=== PATIENT | male | born 1975 | race African-American/Black ===

== ENCOUNTER 2019-04-30 15:40 | Emergency (ER) | payer SELFPAY ==
[2019-04-30] MEDS ORDERED: HYDROCODONE/APAP 5/325 MG TAB ONE (16:38)
[2019-04-30] MEDS ORDERED: DIAZEPAM 5 MG TABLET ONE (16:38)
--- NOTE | 2019-04-30 16:45 | EDPHYS ---
Physician Documentation [facility] Name: Eriberto Alford Age: 43 yrs Sex: Male : 1975 Arrival Date: 04/30/2019 Time: 15:44 Bed 26 Private MD: ED Physician Bowen Jett HPI: 04/30 16:51 This 43 yrs old Black Male presents to ER via Ambulatory with complaints of Shoulder snw Injury. 16:51 The patient or guardian complains of decreased range of motion, deformity, an injury, snw pain. right shoulder. Context: The problem was sustained outdoors, resulted from a fall, from truck, The patient experiences decreased range of motion, when attempts to raise arm, The patient notes a deformity, an anterior fullness. Onset: The symptoms/episode began/occurred suddenly, just prior to arrival. Associated signs and symptoms: The patient has no apparent associated signs or symptoms. Severity of symptoms: At their worst the symptoms were moderate, severe, in the emergency department the symptoms are unchanged. The patient has not experienced similar symptoms in the past. It is unknown whether or not the patient has recently seen a physician. 16:52 no LOC. snw Historical: - Allergies: 16:06 PENICILLINS; tw2 - Home Meds: 16:06 None [Active]; tw2 - PMHx: 16:06 None; tw2 - PSHx: 16:06 None; tw2 - Immunization history:: Adult Immunizations. - Social history:: Smoking status: . - Ebola Screening: : Patient denies travel to an Ebola-affected area in the 21 days before illness onset. ROS: 16:51 Constitutional: Negative for fever, chills, and weight loss, Eyes: Negative for injury, snw pain, redness, and discharge, ENT: Negative for injury, pain, and discharge, Neck: Negative for injury, pain, and swelling, Cardiovascular: Negative for chest pain, palpitations, and edema, Respiratory: Negative for shortness of breath, cough, wheezing, and pleuritic chest pain, Abdomen/GI: Negative for abdominal pain, nausea, vomiting, diarrhea, and constipation, Back: Negative for injury and pain, : Negative for injury, bleeding, discharge, and swelling, Skin: Negative for injury, rash, and discoloration, Neuro: Negative for headache, weakness, numbness, tingling, and seizure. 16:51 MS/extremity: Positive for injury or acute deformity, decreased range of motion, pain, of the right shoulder. Exam: 16:47 Constitutional: This is a well developed, well nourished patient who is awake, alert, snw and in no acute distress. Head/Face: Normocephalic, atraumatic. Eyes: Pupils equal round and reactive to light, extra-ocular motions intact. Lids and lashes normal. Conjunctiva and sclera are non-icteric and not injected. Cornea within normal limits. Periorbital areas with no swelling, redness, or edema. ENT: Nares patent. No nasal discharge, no septal abnormalities noted. Tympanic membranes are normal and external auditory canals are clear. Oropharynx with no redness, swelling, or masses, exudates, or evidence of obstruction, uvula midline. Mucous membranes moist. Neck: Trachea midline, no thyromegaly or masses palpated, and no cervical lymphadenopathy. Supple, full range of motion without nuchal rigidity, or vertebral point tenderness. No Meningismus. Chest/axilla: Normal chest wall appearance and motion. Nontender with no deformity. No lesions are appreciated. Cardiovascular: Regular rate and rhythm with a normal S1 and S2. No gallops, murmurs, or rubs. Normal PMI, no JVD. No pulse deficits. Respiratory: Lungs have equal breath sounds bilaterally, clear to auscultation and percussion. No rales, rhonchi or wheezes noted. No increased work of breathing, no retractions or nasal flaring. Abdomen/GI: Soft, non-tender, with normal bowel sounds. No distension or tympany. No guarding or rebound. No evidence of tenderness throughout. Back: No spinal tenderness. No costovertebral tenderness. Full range of motion. Skin: Warm, dry with normal turgor. Normal color with no rashes, no lesions, and no evidence of cellulitis. Neuro: Awake and alert, GCS 15, oriented to person, place, time, and situation. Cranial nerves II-XII grossly intact. Motor strength 5/5 in all extremities. Sensory grossly intact. Cerebellar exam normal. Normal gait. Psych: Awake, alert, with orientation to person, place and time. Behavior, mood, and affect are within normal limits. 16:47 Musculoskeletal/extremity: Extremities: grossly normal except: noted in the anterior aspect of right shoulder: decreased ROM, tenderness, anterior fullness to right shoulder. Vital Signs: 16:06 BP 148 / 95; Pulse 95; Resp 17; Temp 98.2(O); Pulse Ox 100% on R/A; Weight 120.2 kg tw2 (R); Height 5 ft. 9 in. (175.26 cm); Pain 8/10; 17:00 BP 138 / 92; Pulse 91; Resp 17 S; Pulse Ox 100% on R/A; ca1 16:06 Body Mass Index 39.13 (120.20 kg, 175.26 cm) tw2 Procedures: 16:48 Splinting: Splint applied to right shoulder using shoulder immobilizer. applied by snw myself. post reduction film - reveals normal alignment, Examined by me, post splint application: neurovascular intact, 2+ distal pulses palpable, brisk capillary refill noted, Patient tolerated well. Reduction: of the right shoulder, using manipulation, flexion, Immobilized with shoulder immobilizer. Patient tolerated well. Post reduction film - reveals normal alignment. MDM: 16:42 Patient medically screened. snw 16:49 Data reviewed: vital signs, nurses notes. Data interpreted: Pulse oximetry: on room air snw is 100 %. Interpretation: normal. Counseling: I had a detailed discussion with the patient and/or guardian regarding: the historical points, exam findings, and any diagnostic results supporting the discharge/admit diagnosis, radiology results, the need for outpatient follow up, to return to the emergency department if symptoms worsen or persist or if there are any questions or concerns that arise at home. Special discussion: I have referred the patient to see his PCP for further evaluation of high blood pressure. Based on the history and exam findings, there is no indication for further emergent testing or inpatient evaluation. I discussed with the patient/guardian the need to see the orthopedic surgeon for further evaluation of the symptoms. I discussed with the patient/guardian the need to see the primary care provider for further evaluation of the symptoms. 04/30 16:19 Order name: Shoulder Right (2 View) XRAY snw 04/30 16:43 Order name: Shoulder Immobilizer; Complete Time: 16:46 snw Administered Medications: 16:20 Drug: [place] 5 mg-325 mg 1 tabs Route: PO; ca1 17:00 Follow up: Response: No adverse reaction; Pain is decreased ca1 16:23 Drug: Valium 5 mg Route: PO; ca1 17:00 Follow up: Response: No adverse reaction; Pain is decreased ca1 Disposition: 05/01 07:06 Co-signature as Attending Physician, Bowen Jett MD. rn Disposition: 04/30/19 16:45 Discharged to Home. Impression: Dislocation of other parts of right shoulder girdle, Fall (on) (from) other stairs and steps. - Condition is Stable. - Discharge Instructions: Shoulder Dislocation, Fall Prevention in the Home, Hypertension, How to Use a Shoulder Immobilizer, Managing Your Hypertension. - Prescriptions for Diclofenac Sodium 75 mg Oral Tablet Sustained Release - take 1 tablet by ORAL route 2 times per day; 30 tablet. orphenadrine citrate 100 mg Oral Tablet Sustained Release - take 1 tablet by ORAL route 2 times per day As needed; 20 tablet. - Medication Reconciliation Form, Thank You Letter, Antibiotic Education, Prescription Opioid Use form. - Follow up: Private Physician; When: 2 - 3 days; Reason: Recheck today's complaints, Continuance of care, Re-evaluation by your physician. Follow up: Emergency Department; When: As needed; Reason: Worsening of condition. Signatures: Dispatcher [employer] EDPA Angie Santos, SORORITY MOTHER-C SORORITY MOTHER-Csnw Bowen Jett MD MD rn Wise, Tara, RN RN tw2 Adriane Villarreal RN RN ca1 Corrections: (The following items were deleted from the chart) 04/30 16:31 16:21 Shoulder Right 2 View+RAD.RAD.[email or web address] ordered. [facility] 17:20 16:45 04/30/2019 16:45 Discharged to Home. Impression: Dislocation of other parts of ca1 right shoulder girdle; Fall (on) (from) other stairs and steps. Condition is Stable. Forms are Medication Reconciliation Form, Thank You Letter, Antibiotic Education, Prescription Opioid Use. Follow up: Private Physician; When: 2 - 3 days; Reason: Recheck today's complaints, Continuance of care, Re-evaluation by your physician. Follow up: Emergency Department; When: As needed; Reason: Worsening of condition. snw
--- NOTE | 2019-04-30 16:45 | ER ---
Nurse's Notes [facility] Name: Eriberto Alford Age: 43 yrs Sex: Male : 1975 Arrival Date: 04/30/2019 Time: 15:44 Bed 26 Private MD: Diagnosis: Dislocation of other parts of right shoulder girdle;Fall (on) (from) other stairs and steps Presentation: 04/30 16:04 Presenting complaint: Patient states: about an hour ago i fell getting out of the back tw2 of a truck, my leg got caught on something and i fell landed on my RIGHT shoulder and my arm was out straight, denies knee pain, right elbow pain as well. Transition of care: patient was not received from another setting of care. Onset of symptoms was April 30, 2019. Risk Assessment: Do you want to hurt yourself or someone else? Patient reports no desire to harm self or others. Initial Sepsis Screen: Does the patient meet any 2 criteria? No. Patient's initial sepsis screen is negative. Does the patient have a suspected source of infection? No. Patient's initial sepsis screen is negative. Care prior to arrival: None. 16:04 Method Of Arrival: Ambulatory tw2 16:04 Acuity: ELDER 3 tw2 Triage Assessment: 16:05 General: Appears uncomfortable, obese, Behavior is calm, cooperative, appropriate for tw2 age. Pain: Complains of pain in anterior aspect of right shoulder and posterior aspect of right shoulder. Musculoskeletal: Range of motion: limited in right shoulder. Injury Description: fall landed on right shoulder. Historical: - Allergies: 16:06 PENICILLINS; tw2 - Home Meds: 16:06 None [Active]; tw2 - PMHx: 16:06 None; tw2 - PSHx: 16:06 None; tw2 - Immunization history:: Adult Immunizations. - Social history:: Smoking status: . - Ebola Screening: : Patient denies travel to an Ebola-affected area in the 21 days before illness onset. Screenin:13 Abuse screen: Denies threats or abuse. Denies injuries from another. Nutritional ca1 screening: No deficits noted. Tuberculosis screening: No symptoms or risk factors identified. Fall Risk Fall in past 12 months (25 points). Assessment: 16:13 General: Appears in no apparent distress. uncomfortable, Behavior is calm, cooperative, ca1 appropriate for age. Pain: Complains of pain in right elbow and right shoulder and right arm and posterior aspect of right shoulder and anterior aspect of right shoulder Pain currently is 7 out of 10 on a pain scale. Pain began 1 hour ago. Aggravated by repositioning. Neuro: Level of Consciousness is awake, alert, obeys commands, Oriented to person, place, time, situation. Cardiovascular: Heart tones S1 S2 present Capillary refill < 3 seconds Patient's skin is warm and dry. Respiratory: Airway is patent Respiratory effort is even, unlabored, Respiratory pattern is regular, symmetrical, Breath sounds are clear bilaterally. GI: Abdomen is round non-distended, Bowel sounds present X 4 quads. Abd is soft and non tender X 4 quads. : No deficits noted. No signs and/or symptoms were reported regarding the genitourinary system. EENT: No deficits noted. No signs and/or symptoms were reported regarding the EENT system. Derm: Skin is intact, is healthy with good turgor, Skin is pink, warm \T\ dry. Musculoskeletal: Circulation, motion, and sensation intact. Capillary refill < 3 seconds, Range of motion: limited in right shoulder. 17:00 Reassessment: Patient appears in no apparent distress at this time. Patient and/or ca1 family updated on plan of care and expected duration. Pain level reassessed. Patient is alert, oriented x 3, equal unlabored respirations, skin warm/dry/pink. Vital Signs: 16:06 BP 148 / 95; Pulse 95; Resp 17; Temp 98.2(O); Pulse Ox 100% on R/A; Weight 120.2 kg tw2 (R); Height 5 ft. 9 in. (175.26 cm); Pain 8/10; 17:00 BP 138 / 92; Pulse 91; Resp 17 S; Pulse Ox 100% on R/A; ca1 16:06 Body Mass Index 39.13 (120.20 kg, 175.26 cm) tw2 ED Course: 15:44 Patient arrived in ED. rg4 16:05 Triage completed. tw2 16:05 Arm band placed on. tw2 16:09 Adriane Villarreal, RN is Primary Nurse. ca1 16:13 Patient has correct armband on for positive identification. Placed in gown. Bed in low ca1 position. Call light in reach. Side rails up X 1. Pulse ox on. NIBP on. Warm blanket given. 16:13 No provider procedures requiring assistance completed. ca1 16:19 Angie [facility]C [facility]. snw 16:19 Bowen Jett MD is Attending Physician. snw 16:30 Sling applied to right arm. ca1 16:57 Shoulder Right (2 View) XRAY In Process Unspecified. EDMS 17:18 Patient did not have IV access during this emergency room visit. ca1 Administered Medications: 16:20 Drug: [place] 5 mg-325 mg 1 tabs Route: PO; ca1 17:00 Follow up: Response: No adverse reaction; Pain is decreased ca1 16:23 Drug: Valium 5 mg Route: PO; ca1 17:00 Follow up: Response: No adverse reaction; Pain is decreased ca1 Outcome: 16:45 Discharge ordered by . snw 17:19 Discharged to home ambulatory, with friend. ca1 17:19 Condition: stable 17:19 Discharge instructions given to patient, Instructed on discharge instructions, follow up and referral plans. medication usage, Demonstrated understanding of instructions, follow-up care, medications, splint care, Prescriptions given X 2. 17:20 Patient left the ED. ca1 Signatures: Dispatcher [employer] EDMS Angie Santos FNP-C ART INSTRUCTOR-Csnw Vita Monroy, RN RN tw2 Yareli Pollack 4 Adriane Villarreal RN RN ca1
--- NOTE | 2019-04-30 17:34 | RAD REPORT ---
EXAM DESCRIPTION: RAD - Shoulder Right 2 View - 04/30/2019 5:00 pm CLINICAL HISTORY: Right shoulder pain status post fall FINDINGS: A 17 millimeter bony density lies adjacent to the distal superior aspect of the right clav icle. It has a sclerotic border which indicates that it may be chronic rather than acute. This should be correlated clinically and with physical examination to see if there is point tenderness. No dislocation is seen.
== END 2019-04-30 17:20 | disposition home or self-care (01) ==
LOC: ER 15:40
PROC: 0RSJXZZ Reposition Right Shoulder Joint, External Approach (ICD-10-PCS; principal; 2019-04-30)
DX: S43.304A Dislocation of unspecified parts of right shoulder girdle, initial encounter (principal); W10.8XXA Fall (on) (from) other stairs and steps, initial encounter; Y93.9 Activity, unspecified; Y92.9 Unspecified place or not applicable; Z88.0 Allergy status to penicillin
CPT/HCPCS: 99284